=== PATIENT | male | born 1990 | race American Indian/Alaskan Native ===

== ENCOUNTER 2020-04-21 21:43 | Emergency (ER) | payer SELFPAY ==
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
--- NOTE | 2020-04-21 22:57 | XRay Report ---
Left knee 3 views INDICATION: Left knee pain. Injury IMPRESSION: Small left knee effusion. No fracture or subluxation identified. Signer Name: Gomez Knowles MD Signed: 04/21/2020 10:53 PM Workstation Name: [id number]
[2020-04-21 23:52] VITALS: BP 145/82
== END 2020-04-22 00:07 | disposition home or self-care (01) ==
LOC: EEVIPCON 21:43 → ED 21:43
DX: S00.93XA Contusion of unspecified part of head, initial encounter (principal); S80.02XA Contusion of left knee, initial encounter; F17.200 Nicotine dependence, unspecified, uncomplicated; V49.69XA Unspecified car occupant injured in collision with other motor vehicles in traffic accident, initial encounter; Y93.89 Activity, other specified; Y92.410 Unspecified street and highway as the place of occurrence of the external cause; Y99.8 Other external cause status
CPT/HCPCS: 70450